=== PATIENT | female | born 1985 | race Caucasian/White ===

== ENCOUNTER 2021-04-29 07:44 | Emergency (ER) | payer SELFPAY ==
[2021-04-29 07:55] VITALS: BP 145/109; PULSE 75; RESP 19; TEMP 36.8; O2SAT 97; BMI 25.7
--- NOTE | 2021-04-29 08:02 | XRR_ITS ---
PROCEDURE INFORMATION: Exam: XR Right Knee Exam date and time: 04/29/2021 8:02 AM Age: 35 years old Clinical indication: Injury or trauma; Fall; Blunt trauma; Knee; Right; Additional info: Pain, fall TECHNIQUE: Imaging protocol: XR Right knee. Views: 3 views. COMPARISON: No relevant prior studies available. FINDINGS: Bones/joints: Normal. Soft tissues: Normal. XR/XR knee RT 3V* [id number] IMPRESSION: No significant abnormality.
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
[2021-04-29] MEDS: CELEcoxib 200 mg Capsule 400 MG PO (08:20)
[2021-04-29 09:12] VITALS: BP 139/97; PULSE 71; RESP 18; O2SAT 97
== END 2021-04-29 09:13 | disposition home or self-care (01) ==
PROVIDERS: Emergency Provider Nurse Practitioner Family
DX: S80.02XA Contusion of left knee, initial encounter (principal); W19.XXXA Unspecified fall, initial encounter; Y93.51 Activity, roller skating (inline) and skateboarding
CPT/HCPCS: 73562; 99283

== ENCOUNTER → 2021-07-24 09:40 | Outpatient (BNVA) | payer MEDICAID, SELFPAY | PROVIDERS: Visit Provider Nurse Practitioner Family | DX: Z20.822 Contact with and (suspected) exposure to COVID-19 (principal) | CPT/HCPCS: 87426 ==